=== PATIENT | female | born 1945 | race Asian ===

== ENCOUNTER 2017-11-29 06:50 | Day surgery (SDC) | payer MEDICARE ==
[~2017-11-29] VITALS: Ht 165.1 cm; Wt 79.5 kg
[2017-11-29] MEDS ORDERED: SODIUM CHLORIDE 0.9% 1,000 ML IV ONE ×2 (07:09→07:30)
[2017-11-29] MEDS ORDERED: LOSA50TA37 PO (07:34)
[2017-11-29] MEDS ORDERED: GLIP5 PO (07:34)
[2017-11-29] MEDS ORDERED: METF500T4 PO (07:34)
[2017-11-29] MEDS ORDERED: METO50 PO (07:34)
[2017-11-29] MEDS ORDERED: ISOS60TA4 PO (07:34)
[2017-11-29] MEDS ORDERED: ATOR20TA86 PO (07:34)
[2017-11-29 07:47] LABS: BASOPHILS % (AUTO) 0.6 % (0.0-2.0); EOSINOPHILS % (AUTO) 1.5 % (1.0-6.0); HEMOGLOBIN 13.4 g/dL (12.0-16.0); LYMPHOCYTES # (AUTO) 1.6 K/uL (1.0-4.8); LYMPHOCYTES % (AUTO) 24.4 % (22.0-44.0); MEAN CORPUSCULAR HEMOGLOBIN 30.8 pg (26.0-34.0); MEAN CORPUSCULAR HGB CONC 33.3 G/dL (31.0-37.0); MEAN CORPUSCULAR VOLUME 92 fL (80-100); MONOCYTES # (AUTO) 0.5 K/uL (0.1-1.0); MONOCYTES % (AUTO) 7.2 % (2.0-9.0); NEUTROPHILS # (AUTO) 4.3 K/uL (1.8-7.7); NEUTROPHILS % (AUTO) 66.3 % (40.0-70.0); PLATELET COUNT (AUTO) 241 K/uL (150-450); RED BLOOD CELL COUNT(AUTO) 4.33 MIL/uL (4.00-5.20); RED CELL DISTRIBUTION WIDTH 13.8 % (11.5-14.5)
[2017-11-29 07:50] LABS: CALCIUM, TOTAL 9.2 mg/dL (8.8-10.5); CREATININE 1.13 mg/dL (0.60-1.30); POTASSIUM 3.8 mmol/L (3.5-5.1)
[2017-11-29 07:54] LABS: PROTHROMBIN TIME 10.3 SEC (9.4-11.6)
[2017-11-29 07:56] LABS: BILIRUBIN,TOTAL 0.6 mg/dL (0.1-1.0); TOTAL PROTEIN, SERUM 8.8 g/dL (6.4-8.2)
[2017-11-29] MEDS ORDERED: IOHEXOL 300 MG/ML 150 ML VIAL ONE (08:24)
[2017-11-29] MEDS ORDERED: LIDOCAINE HCL/PF 1% 30 ML VIAL ONE (08:24)
[2017-11-29] MEDS ORDERED: SODIUM BICARBONATE 50 MEQ/50 ML VIAL ONE (08:24)
[2017-11-29] MEDS ORDERED: HEPARIN SODIUM 1000 UNITS/NS 1,000 ML ONE (08:24)
[2017-11-29 08:36] VITALS: BP 141/76
[2017-11-29] MEDS ORDERED: HEPARIN SODIUM 2,000 UNITS in HEPARIN SODIUM 1000 UNITS/NS 1,000 ML IARTER ONE (09:26)
[2017-11-29] MEDS ORDERED: IOHEXOL 300 MG/ML 150 ML VIAL IARTER ONE (09:30)
[2017-11-29] MEDS ORDERED: LIDOCAINE 1% 30 ML/SOD BICARB 8.4% 4 ML SQ ONE (09:30)
[2017-11-29 10:08] VITALS: BP 140/73
== END 2017-11-29 16:35 | disposition home or self-care (01) ==
LOC: CATHLAB 06:50
PROVIDERS: ATTEND Internal Medicine Cardiovascular Disease
DX: I25.10 Atherosclerotic heart disease of native coronary artery without angina pectoris (principal); I10 Essential (primary) hypertension; E11.9 Type 2 diabetes mellitus without complications; E78.5 Hyperlipidemia, unspecified; Z95.5 Presence of coronary angioplasty implant and graft; Z98.51 Tubal ligation status; Z86.74 Personal history of sudden cardiac arrest; Z79.84 Long term (current) use of oral hypoglycemic drugs; Z79.82 Long term (current) use of aspirin; Z98.890 Other specified postprocedural states; Z79.899 Other long term (current) drug therapy
CPT/HCPCS: 36415; 80053; 85025; 85610; 85730; 93005; 93458; J1644; J3490 ×2; J7030; Q9967